=== PATIENT | male | born 1995 | race Two or more races ===

== ENCOUNTER 2020-10-18 15:02 | Emergency (ER) | payer MEDICAID ==
[~2020-10-18] VITALS: Ht 172.7 cm; Wt 77.3 kg
[2020-10-18] MEDS ORDERED: MORPHINE SULFATE 4 MG/ML SYRINGE IVP ONE (16:15)
[2020-10-18] MEDS ORDERED: ONDANSETRON HCL 4 MG/2 ML VIAL IVP ONE (16:15)
[2020-10-18 17:40] VITALS: BP 112/65
== END 2020-10-18 17:53 | disposition home or self-care (01) ==
LOC: EMS 15:08
DX: S43.084A Other dislocation of right shoulder joint, initial encounter (principal); V00.138A Other skateboard accident, initial encounter; Y93.89 Activity, other specified; Y92.89 Other specified places as the place of occurrence of the external cause; Y99.8 Other external cause status
CPT/HCPCS: 23650; 73030; 96374; 96375; 99284; J2270; J2405